=== PATIENT | female | born 2000 | race Caucasian/White ===

== ENCOUNTER 2024-04-18 15:36 | Outpatient (CLI) | payer BC, SELFPAY ==
--- NOTE | ~2024-04-18 | XR_ITS ---
XR cervical spine 4-5V 04/18/2024 16:16 Indication: Neck pain Procedure: 6 view cervical spine including flexion/extension views Comparison: No prior studies for comparison. Findings: No fracture, subluxation or dislocation. No prevertebral soft tissue swelling. No foreign b odies are significant alteration of alignment with flexion and extension. There is straightening of c ervical lordosis in neutral position which may be due to muscle spasm or patient positioning. Odontoid process is unremarkable. Impression: 1: No significant abnormality of the cervical spine. Reviewed, dictated and finalized at location B. Impression: 1: No significant abnormality of the cervical spine.
== END 2024-04-18 15:37 ==
PROVIDERS: PCP Chiropractor; Visit Provider Chiropractor
DX: M54.2 Cervicalgia (principal)
CPT/HCPCS: 72050